=== PATIENT | male | born 1975 | race Caucasian/White ===

== ENCOUNTER 2020-03-17 22:10 | Emergency (ER) | payer OTHER ==
[2020-03-17 22:35] VITALS: BP 139/95; PULSE 78; TEMP 98.1; BMI 26.2
[2020-03-17] MEDS ORDERED: SODIUM CHLORIDE 0.9% 500 ML INFUS.BAG IV ONE (23:08)
[2020-03-17 23:51] LABS: BASO % 0.8 % (0-2.0); EOS % 2.1 % (0-4.5); HEMATOCRIT 45.9 % (35.4-49); HEMOGLOBIN 15.8 GM/dL (11.7-16.9); LYMPH % 45.2 % (8-40); MCH 31.9 pg (25.7-33.7); MCHC 34.3 g/dl (32.0-35.9); MEAN CELL VOLUME 93.1 fl (80-96); MEAN PLT VOLUME 9.9 fl (7.5-11.1); MONO % 15.9 % (3.8-10.2); PLATELET COUNT 161 K/MM3 (134-434); RBC 4.93 M/mm3 (4.00-5.60); RDW 13.5 % (11.9-15.9); WHITE BLOOD COUNT 4.4 K/mm3 (4.0-10.0)
[2020-03-17 23:57] LABS: INR 0.99 (0.83-1.09); PROTHROMBIN TIME (PATIENT) 12.2 SEC (9.7-13.0)
[2020-03-18] LABS: ACTIVATED PTT 33.8 SECONDS (25.2-36.5)
[2020-03-18 00:10] LABS: CHLORIDE 109 mmol/L (98-107); SODIUM 141 mmol/L (136-145)
[2020-03-18 00:13] LABS: ALBUMIN 3.6 g/dl (3.4-5.0); ANION GAP 5 MMOL/L (8-16); BLOOD UREA NITROGEN 19.3 mg/dL (7-18); CALCIUM 7.9 mg/dL (8.5-10.1); CO2 27 mmol/L (21-32); GLUCOSE,RANDOM 116 mg/dL (74-106)
[2020-03-18 00:16] LABS: BILIRUBIN,DIRECT 0.1 mg/dL (0.0-0.2); CREATININE 0.9 mg/dL (0.55-1.3); SGOT/AST 30 U/L (15-37); SGPT/ALT 44 U/L (13-61)
[2020-03-18 00:18] LABS: BILIRUBIN,TOTAL 0.4 mg/dL (0.2-1); LDH 208 U/L (87-246); TOT PROT 7.5 g/dl (6.4-8.2)
[2020-03-18 00:19] LABS: ALK PHOS 142 U/L (45-117)
[2020-03-18 00:26] LABS: URINE APPEARANCE CLEAR; URINE BILIRUBIN NEGATIVE (NEGATIVE); URINE COLOR YELLOW; URINE GLUCOSE (UA) NEGATIVE (NEGATIVE); URINE KETONE NEGATIVE (NEGATIVE); URINE LEUK ESTERASE NEGATIVE (NEGATIVE); URINE NITRITE NEGATIVE (NEGATIVE); URINE PROTEIN NEGATIVE (NEGATIVE); URINE UROBILINOGEN 0.2 mg/dL (0.2-1.0)
== END 2020-03-18 02:06 | disposition home or self-care (01) ==
LOC: JER 22:10
DX: R07.9 Chest pain, unspecified (principal)
CPT/HCPCS: 36415; 71046-TC-FY; 80053; 81003; 82248; 82550; 82728; 83605; 83615; 84484; 85025; 85379; 85610; 85730; 86140; 87086; 87426; 87804; 99285-25

== ENCOUNTER 2021-03-25 22:10 | Emergency (ER) | payer OTHER ==
[2021-03-25 22:21] VITALS: BP 126/83; PULSE 82; TEMP 98.2; BMI 29.1
[2021-03-26 00:30] LABS: BASO % 0.6 % (0-2.0); EOS % 3.6 % (0-4.5); HEMATOCRIT 44.6 % (35.4-49); HEMOGLOBIN 15.2 GM/dL (11.7-16.9); MCH 31.3 pg (25.7-33.7); MCHC 34.1 g/dl (32.0-35.9); MEAN PLT VOLUME 8.7 fl (7.5-11.1); MONO % 9.4 % (3.8-10.2); NEUT % 44.4 % (42.8-82.8); PLATELET COUNT 183 10^3/uL (134-434); RBC 4.84 M/mm3 (4.00-5.60); RDW 13.6 % (11.9-15.9); WHITE BLOOD COUNT 6.4 K/mm3 (4.0-10.0)
[2021-03-26 00:31] LABS: PH,URINE 5.5 (5.0-8.0); URINE APPEARANCE CLEAR; URINE BILIRUBIN NEGATIVE (NEGATIVE); URINE COLOR YELLOW; URINE GLUCOSE (UA) NEGATIVE (NEGATIVE); URINE KETONE NEGATIVE (NEGATIVE); URINE LEUK ESTERASE NEGATIVE (NEGATIVE); URINE NITRITE NEGATIVE (NEGATIVE); URINE PROTEIN NEGATIVE (NEGATIVE); URINE UROBILINOGEN 0.2 mg/dL (0.2-1.0)
[2021-03-26 00:59] LABS: CALCIUM 9.1 mg/dL (8.5-10.1)
[2021-03-26 01:00] LABS: ALBUMIN 3.6 g/dl (3.4-5.0); BLOOD UREA NITROGEN 21.4 mg/dL (7-18)
[2021-03-26 01:03] LABS: CREATININE 0.9 mg/dL (0.55-1.3)
[2021-03-26 01:05] LABS: BILIRUBIN,TOTAL 0.4 mg/dL (0.2-1)
== END 2021-03-26 04:12 | disposition home or self-care (01) ==
LOC: JER 22:10 → JERFT 22:10 → JER 03-26 04:12
DX: R10.2 Pelvic and perineal pain (principal)
CPT/HCPCS: 36415; 72193-TC; 80053; 81003; 82272; 85025; 87086; 93005; 93010; 99285-25